=== PATIENT | male | born 1985 | race Two or more races ===

== ENCOUNTER 2021-09-17 12:21 | Emergency (ER) | payer SELFPAY ==
[~2021-09-17] VITALS: Ht 172.7 cm; Wt 88.5 kg
[2021-09-17] MEDS ORDERED: LIDOCAINE 1% HCL (LOCAL ANESTH.) INJ 20ML MDV IJ ONE (13:45)
[2021-09-17] MEDS ORDERED: TETANUS-DIPTH-ACEL PERTUSSIS 0.5ML SYR Tdap IM ONE (13:45)
[2021-09-17] MEDS ORDERED: NAP500T PO (13:55)
[2021-09-17] MEDS ORDERED: AMOX500T86 PO (13:55)
[2021-09-17 14:15] VITALS: BP 99/57
== END 2021-09-17 14:28 | disposition home or self-care (01) ==
LOC: ER 12:21
DX: S61.412A Laceration without foreign body of left hand, initial encounter (principal); W54.0XXA Bitten by dog, initial encounter; Y93.89 Activity, other specified; Y92.89 Other specified places as the place of occurrence of the external cause; Y99.8 Other external cause status
CPT/HCPCS: 12002; 73110; 90471; 90715; 99283; J2001